=== PATIENT | female | born 1945 | race Caucasian/White ===

== ENCOUNTER 2019-01-25 15:16 | Inpatient (IN) ==
--- NOTE | 2019-01-25 15:36 | PROVIDER DOCUMENTATION ---
HPI-Musculoskeletal Pain/Inj - GENERAL Chief Complaint: Hip Injury Stated Complaint: FALL Time Seen by Provider: 01/25/19 15:31 Source: patient, EMS - HX OF PRESENT ILLNESS-MUSKULOSKELTAL Nature of Presenting Problem: [id number] presents to the ER via EMS with c/o left hip pain after falling from standing. She states that she tripped while picking Spring salad from her yard. She denies hitting her head or LOC. She states that her hip hurts to move and complains that it feels dislocated. No internal, external rotation was noted on arrival nor was limb shortening. She denies pain on palpation and has full ROM in her ankles. Quality of Pain: reports: dull Severity in ED: mild Onset/Duration: 1 hour ago Timing: still present Any recent injury?: Yes Locality of Occurance: Home Similar Symptoms Previously?: No Recently seen or treated by another doctor?: No - FALL INJURY Location of Pain/Injury: reports: lower extremity (left hip) Pain Radiation: reports: no radiation Symptoms prior to fall:: reports: none, other (trip) Loss of Consciousness: no loss of consciousness Injury Associated Symptoms: reports: denies symptoms - HIP/PELVIS PAIN/INJURY Hip Pain Location: reports: hip (L) Pain Radiation: reports: no radiation Context / Method of Injury: reports: fall Associated Symptoms: reports: denies symptoms - LOWER EXTREMITY PAIN/INJURY Lower Extremities Pain: hip: left Review of Systems - Adult - REVIEW OF SYSTEMS - ADULT Constitutional: reports: no symptoms reported, see HPI. denies: chills, fever, weight gain, weight loss Eyes: reports: no symptoms reported. denies: decreased vision, blurred vision, double vision, eye pain Ears, Nose, Mouth & Throat: reports: no symptoms reported. denies: ear discharge, tinnitus, epistaxis Cardiovascular: reports: no symptoms reported. denies: chest pain, heart murmur, irregular heart rate, palpitations, syncope Respiratory: reports: no symptoms reported. denies: chronic cough, cough, dyspnea on exertion, wheezing Gastrointestinal: reports: no symptoms reported. denies: abdominal pain, diarrhea, nausea, poor appetite, vomiting Genitourinary: reports: no symptoms reported. denies: dysuria, frequency, hematuria, urinary retention Musculoskeletal: reports: see HPI, bone pain (left hip). denies: back pain Integumentary: reports: no symptoms reported Neurological: reports: no symptoms reported. denies: dizziness/vertigo, headache/migraines, loss of balance Psychiatric: reports: no symptoms reported Endocrine: reports: no symptoms reported Hematologic/Lymphatic: reports: no symptoms reported Allergic/Immunologic: reports: no symptoms reported All Other Systems: Reviewed and Negative Past History - Adult - PAST MEDICAL HISTORY-ADULT Review of Records: reports: Old Records Reviewed, Nursing Assessment Review, Medications Reviewed, Social history reviewed & non-contributory. Major Childhood Illnesses: reports: denies history Cardiovascular: reports: denies history Respiratory: reports: denies history Gastrointestinal: reports: denies history Obstetrical/Gynecological: reports: denies history Genitourinary: reports: denies history Musculoskeletal: reports: denies history Neurological: reports: denies history Endocrine/Immune: reports: denies history Other Conditions: reports: denies history - PRIOR SURGERIES/PROCEDURES Surgical/Procedure History: reports: none - IMMUNIZATION STATUS Childhood Immunizations: See Nurse Assessment Flu Vaccine: See Nurse Assessment - FAMILY HISTORY Family History: reviewed, not pertinent - SOCIAL HISTORY Smoking: non-smoker Substance Use: none/never Alcohol Use Frequency: never Living Situation: family Physical Exam-Injury Related - Physical Exam-Injury Related Initial Vital Signs Reviewed: Yes General Appearance: appears well, alert, no apparent distress Eyes: PERRL/EOMI, pink conjunctivae Head, Ears, Nose, Mouth & Throat: normocephalic/atraumatic, moist mucous membranes, normal ENT inspection, TMs normal Neck: non-tender, full range of motion, supple Respiratory: chest non-tender, lungs clear, normal breath sounds Cardiovascular: normal peripheral pulses, regular rate, rhythm Peripheral Pulses: radial (R): 2+, radial (L): 2+, dorsalis-pedis (R): 2+, dorsalis-pedis (L): 2+ Abdominal Exam: normal bowel sounds, non tender, soft Female Genitalia/Pelvic Exam: deferred Rectal Exam: deferred Back Exam: normal inspection Extremity: normal capillary refill, tenderness (left hip), other (limited ROM left hip). negative: normal gait (unable to bear weight), deformity Integumentary: normal color, warm/dry, blanching Neurologic: grossly normal, abnormal gait Psych/Mental Status: normal mood/affect, oriented x 3 Progress - PLAN OF CARE/RESULTS Progress/Plan/Lab Results: Vital Signs - 8 hr 01/25/19 15:13 Temperature 98.6 F Pulse Rate 86 Respiratory Rate 16 Blood Pressure 165/82 O2 Sat by Pulse Oximetry 100 Orders Category Date Time Status XRAY HIP UNILATERAL LT [RAD] Stat Exams 01/25/19 15:15 Completed Patient to be transferred to [facility]. - XRAY 1 XRAY: Left (FINDINGS: There is fracture of the left femoral neck. There is associated mild impaction laterally. There is no dislocation identified. IMPRESSION: Fracture of left femoral neck.) XRAY Study: Hip Impression: Abnormal - CONSULTS/PCP/HOSPITALIST Notification #1 *Consult/PCP/Hospitalist*: TORO Alva Time Discussed: 16:32 Reason/Comments: hip fracture Consult Disposition: Admit #2 Consult: Dr daniel Time Discussed: 16:15 Reason/Comments: hip fracute Consult Disposition: other (Will see in AM, admit to hospitalist) Departure - Departure Date of Disposition Decision: 01/25/19 Time of Disposition Decision: 16:33 DIAGNOSIS: Fractured femoral neck Qualifiers: Encounter type: initial encounter Fracture type: closed Laterality: left Qualified Code(s): S72.002A - Fracture of unspecified part of neck of left femur, initial encounter for closed fracture Disposition: ADMITTED INPATIENT 09 Certified Medical Emergency: Emergent Condition: Critical Additional Freetext Instructions: Follow up with PCP as directed ED Follow Up Instructions: You have been treated by a care provider in the Emergency Department. These instructions are being provided to you so you can have an understanding of how to care for yourself upon discharge. Upon discharge from the Emergency Department, you are responsible for making arrangements for follow-up care by a physician of your choice. Take all prescribed medications as directed. Return to the Emergency Department immediately for any new or worsening symptoms. You may call the Physician Referral phone number at [phone] to obtain a list of Physicians who are taking new patients. - Critical Care Note This patient required my direct & personal management of CC.: No Attestation - Physician/ JENSEN Attestation Patient care was provided by Advanced Practice Provider:: Yes Advanced Practice Provider:: Gilbert Barker Advanced Practice Provider documentation review:: The Mid-level provider documentation, treatment plan and medical decision making was reviewed by the physician who agrees with all treatment and medical decision making by the MLP. The physician spent face to face time with patient:: No Advanced Practice Provider documentation review:: Supervising physician onsite and consulted in the evaluation and care of this patient. The physician did not have a face to face encounter with the patient.
--- NOTE | 2019-01-25 16:09 | Diag Imaging Result Doc PS360 ---
EXAM: XRAY HIP UNILATERAL LT - 01/25/2019 HISTORY: fall TECHNIQUE: Left hip two views COMPARISON: None. FINDINGS: There is fracture of the left femoral neck. There is associated mild impaction laterally. There is no dislocation identified. IMPRESSION: Fracture of left femoral neck. Electronically signed by Terry Solis 01/25/2019 4:07 PM
[2019-01-25 16:55] LABS: BASO# 0.02 X1000 (0.0-0.2); BASO% 0.2 % (0.0-0.8); EOS# 0.38 X1000 (0.0-0.7); EOS% 3.3 % (0.0-10.0); HEMATOCRIT 37.9 % (37.0-47.0); HEMOGLOBIN 13.1 g/dL (12.0-16.0); IMM GRAN# 0.03 X1000 (0.0-0.04); IMM GRAN% 0.3 % (0.0-0.5); LYMPH# 1.42 X1000 (1.2-3.4); LYMPH% 12.5 % (20.5-51.1); MCHC 34.6 g/dL (33-37); MCV 86.7 FL (81-99); MONO% 4.4 % (1.7-9.3); MPV 9.9 FL (7.4-10.4); NEUT# 9.02 X1000 (1.4-6.5); NEUT% 79.3 % (42.2-75.2); PLT 308 X1000 (130-400); RBC 4.37 XMIL (4.2-5.4); RDW 12.5 % (11.5-14.5); WBC 11.37 X1000 (4.8-10.8)
--- NOTE | 2019-01-25 17:11 | Diag Imaging Result Doc PS360 ---
EXAM: CHEST-PORTABLE INDICATION: admit TECHNIQUE: One view COMPARISON: None. FINDINGS: There is an incidental old healed rib fracture on the right. The lungs are grossly clear. There is no discrete pleural fluid collection or pneumothorax. The cardiomediastinal silhouette and central vasculature are grossly unremarkable. IMPRESSION: No evidence of acute pathology by plain radiograph. Electronically signed by Hunter De 01/25/2019 5:09 PM
[2019-01-25 17:38] LABS: BILIRUBIN URINE NEGATIVE (NEGATIVE); BLOOD URINE NEGATIVE (NEGATIVE); CLARITY CLEAR (CLEAR); COLOR YELLOW; KETONE URINE NEGATIVE (NEGATIVE); LEUKOCYTES URINE NEGATIVE (NEGATIVE); NITRITE URINE NEGATIVE (NEGATIVE); UROBILINOGEN URINE NORMAL
[2019-01-25 17:49] LABS: ALBUMIN 4.5 g/dL (3.5-5.0); CALCIUM 9.5 mg/dL (8.8-10.2); CREATININE 3.4 mg/dL (0.5-0.9); POTASSIUM 4.2 mmol/L (3.5-5.1); TOTAL BILIRUBIN 0.2 mg/dL (0.20-1.00); TOTAL PROTEIN 7.7 g/dL (6.3-8.3)
[2019-01-25 17:59] LABS: URINE BACTERIA NEGATIVE /HFP; URINE CAST NONE SEEN /LPF; URINE CRYSTAL NONE SEEN /HPF; URINE EPITHELIAL CELLS <10 /HPF (<10); URINE RBC <10 /HPF (<10); URINE WBC <10 /HPF (<10); URINE YEAST NONE SEEN /HPF
[2019-01-25 18:00] LABS: URINE SOURCE CATH
--- NOTE | 2019-01-25 18:26 | HISTORY AND PHYSICAL ---
PRIMARY CARE PROVIDER: Isabel Dunne M.D. in [place], [place] RIB TRIM SEPARATOR: Dr. Mclaughlin in [place], [place]. CHIEF COMPLAINT: Fall with left hip pain. HISTORY OF PRESENT ILLNESS: Ms. Bonilla is a 73-year-old female who carries a past medical history of hypertension, diabetes mellitus type 2, small DC, previous stage 5 kidney disease where she required hemodialysis for a short period of time, she was quickly taken off, recently was diagnosed with stage 4 kidney disease, hyperlipidemia, situational depression, GERD, vertigo, who reported this morning she was sitting out in her daughter's backyard. She got up to wrestle a [employer] plant and fell to the ground, had immediate left hip pain. Workup in the ED revealed a fracture of the left femoral neck. We are currently awaiting her laboratory data. We will place a [place]. Dr. Harry has already been consulted. We will transfer her [facility] to [facility]. PAST MEDICAL HISTORY: 1. Hypertension. 2. Diabetes mellitus type 2. 3. Small DC. 4. Stage 5 kidney disease where she required short-term dialysis, now diagnosed with stage 4 kidney disease. 5. Hyperlipidemia. 6. Depression situational. 7. Gastroesophageal reflux disease. 8. Vertigo. PAST SURGICAL HISTORY: Fibroid cyst removal from her breast. ALLERGIES: No known drug allergies. HOME MEDICATIONS: 1. Norvasc 10 mg p.o. daily. 2. Eliquis 2.5 mg p.o. b.i.d. 3. Calcitriol 0.25 mcg p.o. as directed. 4. Lasix 80 mg p.o. b.i.d. 5. SoloSTAR 20 units subcutaneous daily. 6. Iron 65 mg p.o. b.i.d. 7. Isosorbide dinitrate 20 mg p.o. b.i.d. 8. Prilosec 20 mg p.o. daily. 9. Simvastatin 40 mg p.o. daily. REVIEW OF SYSTEMS: Twelve-point review of systems complete and negative except for those mentioned in HPI. Patient denied any headache, fever, chills, chest pain, shortness of breath, palpitations, nausea, vomiting, diarrhea, any syncopal or presyncopal feelings before falling. PHYSICAL EXAMINATION: VITAL SIGNS: Temperature is 98.6 degrees, heart rate 82, respirations 18, blood pressure 165/82, O2 is 99% on room air. GENERAL: Ms. Bonilla is a pleasant 73-year-old female who is sitting on the stretcher in no acute distress. HEENT: Atraumatic, normocephalic. PERRL. NECK: Supple. Trachea midline. CARDIOVASCULAR: S1, S2 appreciated. No murmurs, gallops or rubs noted. RESPIRATORY: Lung sounds clear bilaterally. GASTROINTESTINAL: Soft, nontender, nondistended. Positive bowel sounds 4 quadrants. LOWER EXTREMITIES: There is some edema but nonpitting. Bilateral pedal pulses are palpable. No clubbing, no cyanosis. NEUROLOGIC: No focal deficits noted. DIAGNOSTIC DATA: Left hip x-ray shows a left femoral neck fracture. LABORATORY DATA: Currently pending. Urinalysis pending. IMAGING: Chest x-ray pending. ASSESSMENT AND PLAN: 1. Mechanical fall with a left femoral neck fracture. We will place her on strict bedrest, make her n.p.o. after midnight. Dr. Harry has already been consulted. We will provide her IV pain medication, place a Bardales catheter. 2. Chronic kidney disease, probable stage 4 to 5. Currently awaiting laboratory data. 3. Hypertension. Continue Norvasc. 4. Hyperlipidemia. Continue statin. 5. Diabetes mellitus type 2. We will continue with sliding scale patterned blood sugars. 6. Situational depression. We will continue home medication. 7. Gastroesophageal reflux disease. We will continue PPI. 8. Further recommendations to follow physician evaluation, laboratory and diagnostic data. Dictated by TORO Gross for Alonzo Tellez MD cc: MD Hunter Sal MD Dr. Carey Frix Dr. Chari
[2019-01-25] MEDS ORDERED: TYLENOL PO PRN (18:46)
--- NOTE | 2019-01-25 19:20 | HISTORY AND PHYSICAL ---
HISTORY OF PRESENT ILLNESS: Patient is a very pleasant 73-year-old female who is in town to visit her daughter. She apparently attempted to pull up a plant and fell, breaking her hip. Blood pressure is elevated slightly at 165/82. She currently states her pain is controlled. She has a known history of diabetes, hypertension, and stage IV renal disease. Currently, labs are still pending. We will evaluate those when they are available. We will transfer to [facility] for orthopedic evaluation. Further orders as needed. cc: Alonzo Tellez MD
[2019-01-25] MEDS: NS 1,000 ML IV SCH (20:51)
[2019-01-25] MEDS: MORPHINE IV PRN (20:52)
[2019-01-25] MEDS: ISORDIL PO SCH (20:52)
[2019-01-25] MEDS: ZOFRAN IV PRN (20:53)
[2019-01-25] MEDS: PATIENT'S OWN MED PO SCH (20:55)
[2019-01-25] MEDS: HUMALOG SUBQ SCH (22:54)
[2019-01-26] MEDS: MORPHINE IV PRN ×4 (02:58→20:18)
[2019-01-26] MEDS ORDERED: ATIVAN IV ONE (04:08)
[2019-01-26] MEDS: NS 1,000 ML IV SCH (05:05)
[2019-01-26 06:33] LABS: BASO# 0.01 X1000 (0.0-0.2); BASO% 0.1 % (0.0-0.8); EOS# 0.38 X1000 (0.0-0.7); EOS% 5.4 % (0.0-10.0); HEMATOCRIT 31.6 % (37.0-47.0); HEMOGLOBIN 10.7 g/dL (12.0-16.0); IMM GRAN# 0.02 X1000 (0.0-0.04); IMM GRAN% 0.3 % (0.0-0.5); LYMPH# 1.56 X1000 (1.2-3.4); MCH 29.6 PG (27-31); MCHC 33.9 g/dL (33-37); MCV 87.5 FL (81-99); MONO% 8.5 % (1.7-9.3); MPV 10.1 FL (7.4-10.4); NEUT# 4.52 X1000 (1.4-6.5); NEUT% 63.7 % (42.2-75.2); PLT 245 X1000 (130-400); RBC 3.61 XMIL (4.2-5.4); RDW 12.5 % (11.5-14.5); WBC 7.09 X1000 (4.8-10.8)
[2019-01-26 06:39] LABS: HEMOGLOBIN A1C 7.2 % (4.8-6.0)
[2019-01-26 07:17] LABS: TSH 3.73 uIUmL (0.27-4.20)
[2019-01-26 07:24] LABS: ALB/GLOB RATIO 1.5; ALBUMIN 3.8 g/dL (3.5-5.0); CALCIUM 8.8 mg/dL (8.8-10.2); CREATININE 3.4 mg/dL (0.5-0.9); POTASSIUM 3.1 mmol/L (3.5-5.1); TOTAL BILIRUBIN 0.33 mg/dL (0.20-1.00); TOTAL PROTEIN 6.3 g/dL (6.3-8.3)
--- NOTE | 2019-01-26 07:28 | EKG Report ---
Test Performed on : 01/26/2019 07:16:04 AM Test Reason : follow up Blood Pressure : / mmHG Vent. Rate : 081 BPM Atrial Rate : 081 BPM P-R Int : 186 ms QRS Dur : 078 ms QT Int : 398 ms P-R-T Axes : 052 005 052 degrees QTc Int : 462 ms Normal sinus rhythm. Normal ECG When compared with ECG of 25-JAN-2019 20:58, (Unconfirmed) No significant change was found Confirmed by Catalina GRAY, Clayton Silva ([id number]) on 01/26/2019 9:45:24 AM
[2019-01-26] MEDS: HUMALOG SUBQ SCH ×4 (07:35→22:08)
[2019-01-26] MEDS: PRILOSEC PO SCH (07:45)
[2019-01-26] MEDS: ZOFRAN IV PRN ×2 (08:16→14:13)
[2019-01-26] MEDS: PROZAC PO SCH (08:17)
[2019-01-26] MEDS: ISORDIL PO SCH ×2 (08:17→20:23)
[2019-01-26] MEDS: NORVASC PO SCH (08:18)
[2019-01-26] MEDS: PATIENT'S OWN MED PO SCH ×2 (08:19→20:23)
--- NOTE | 2019-01-26 08:27 | ORTHOPAEDICS CONSULTATION ---
DATE: 01/26/2019 CHIEF COMPLAINT: I broke my hip. HISTORY OF PRESENT ILLNESS: A 73-year-old female who fell sustaining a left femoral neck fracture. She is admitted by the hospitalist. She has a history of hypertension, diabetes, renal disease, hyperlipidemia, reflux and vertigo. She complains of left hip pain only. She denies any other complaints. She reports she just lost her balance and fell in the garden. PAST MEDICAL HISTORY: Significant for hypertension, diabetes, coronary disease in the past, renal disease, hyperlipidemia, depression, reflux, and vertigo. SURGICAL HISTORY: Status post a fibrous cyst removal in the breast in the past. ALLERGIES: None. HOME MEDICINES: Consist of Norvasc, Eliquis, calcitriol, Lasix, iron supplementation, isosorbide, Prilosec and simvastatin. REVIEW OF SYSTEMS: This is relatively noncontributory. SOCIAL HISTORY: Resides with her family in [place] in the [facility]. She was visiting another family member here. PHYSICAL EXAM: General: Reveals her alert and oriented. She is cooperative with exam. Extremities: Left lower extremity is equal in leg length. She is motor and sensory intact. She is nontender from the thigh down, but does have tenderness on gentle passive motion of the left hip. Pelvis is stable. Both upper extremities and the right lower extremity are atraumatic, and motor and sensory intact. She is nontender over the spine. X-RAYS: Reviewed and show a nondisplaced left femoral neck fracture. ASSESSMENT: Left femoral neck fracture, nondisplaced. PLAN: We will plan on surgical closed reduction and pinning of the hip fracture in the near future. This will likely be tomorrow given the OR schedule today is full. Risk of failure of the pinning. As well as need to convert to later total hip, or other surgical risks such as bleeding, infection, anesthesia, blood clots, damage to tendon, nerve or blood vessel, no guarantees were discussed, and she is willing to proceed. We will plan on proceeding with pinning of the left hip under anesthesia tomorrow around noon. cc: Hunter Harry MD
--- NOTE | 2019-01-26 08:28 | EKG Report ---
Test Performed on : 01/25/2019 8:58:58 PM Test Reason : med procedure Blood Pressure : / mmHG Vent. Rate : 093 BPM Atrial Rate : 093 BPM P-R Int : 178 ms QRS Dur : 078 ms QT Int : 364 ms P-R-T Axes : 066 018 080 degrees QTc Int : 452 ms Normal sinus rhythm. Normal ECG No previous ECGs available Confirmed by Catalina GRAY, Clayton Silva ([id number]) on 01/26/2019 9:45:12 AM
[2019-01-26] MEDS ORDERED: KLOR-CON PO ONE (15:02)
--- NOTE | 2019-01-26 16:10 | PROGRESS NOTE ---
DATE: 01/26/2019 SUBJECTIVE: Patient is lying comfortably in bed. At this moment, she is not complaining of pain. She has a left femoral neck fracture, and the plan is to go tomorrow for surgery. She is completely alert, oriented x3. Family members at the bedside. OBJECTIVE: Vital Signs: Temperature 98.7 degrees, pulse 82, respiratory rate 18, blood pressure 129/67, oxygen saturation 98 on room air. HEENT: Head normocephalic, no trauma. PERRLA. Neck: Supple. No JVD. No masses. Central trachea. Chest: Clear to auscultation. No wheezing. No rales. Abdomen: Soft, nontender, nondistended. No hepatosplenomegaly. Extremities: Left hip pain. The leg is rotated a little bit internally. Neurological: Alert and oriented x3. No focal deficits. DIAGNOSTIC STUDIES: WBC 7, hemoglobin 10.7, hematocrit 31.6, platelets 245,000. Sodium 139, potassium 3.1, chloride 100, bicarbonate 24, BUN 58, creatinine 3.4, glucose 85, calcium 8.8. ASSESSMENT AND PLAN: 1. Mechanical fall with a left neck fracture. The plan is to go for surgery tomorrow. Orthopedic Surgery evaluated this patient already. We will monitor. 2. Chronic kidney disease, stage 4. Apparently she was on dialysis before. Her last dialysis apparently was 3 months ago. Kidney function seems to be stable compared with yesterday. I do not have a previous BUN or creatinine. 3. Hypertension. Continue with same management. 4. Hypokalemia. I will replace the potassium. 5. Hyperlipidemia. Continue with statins. 6. Type 2 diabetes. Continue with sliding scale insulin and pattern of blood sugar. 7. Situational depression. Continue home medication. 8. Gastroesophageal reflux disease. Continue with PPI. cc: Zac Darden MD
[2019-01-26] MEDS: ZOCOR PO SCH (20:23)
[2019-01-26] MEDS: LASIX PO SCH (20:23)
[2019-01-27] MEDS: MORPHINE IV PRN (02:16)
[2019-01-27] MEDS: PRILOSEC PO SCH (06:16)
[2019-01-27 06:54] LABS: BASO# 0.02 X1000 (0.0-0.2); BASO% 0.2 % (0.0-0.8); EOS# 0.62 X1000 (0.0-0.7); EOS% 6.8 % (0.0-10.0); HEMATOCRIT 33.2 % (37.0-47.0); HEMOGLOBIN 10.9 g/dL (12.0-16.0); LYMPH% 12.1 % (20.5-51.1); MCH 29.7 PG (27-31); MCHC 32.8 g/dL (33-37); MCV 90.5 FL (81-99); MONO# 0.49 X1000 (0.11-0.59); MONO% 5.4 % (1.7-9.3); MPV 10.2 FL (7.4-10.4); NEUT# 6.86 X1000 (1.4-6.5); NEUT% 75.5 % (42.2-75.2); PLT 254 X1000 (130-400); RBC 3.67 XMIL (4.2-5.4); RDW 12.7 % (11.5-14.5); WBC 9.09 X1000 (4.8-10.8)
[2019-01-27] MEDS: HUMALOG SUBQ SCH ×4 (07:04→22:14)
[2019-01-27 07:14] LABS: CALCIUM 9.4 mg/dL (8.8-10.2); CREATININE 3.7 mg/dL (0.5-0.9)
--- NOTE | 2019-01-27 07:29 | ORTHOPAEDICS PROGRESS NOTE ---
DATE: 01/27/2019 SUBJECTIVE DATA: Ms. Bonilla is seen preop for her left hip pinning. She reports she is still NPO and has not had anything to eat or drink but is requesting some ice chips at this time. OBJECTIVE DATA: The patient is sitting comfortably in the bed. Family at the bedside. There is some swelling noted to the left hip. There is good sensation in the left lower extremity. There are good pedal pulses. There is some slight shortening to the left leg. There is no internal or external rotation noted. ASSESSMENT: Left femoral neck fracture. PLAN: We will plan to do a pinning of her left hip today around 11 a.m. All questions were answered for the patient and her family at bedside. They are willing to proceed. Dictated by TORO Slaughter for Hunter Harry MD cc: TORO Slaughter MD
[2019-01-27] MEDS ORDERED: KEFZOL 1 GM/D5W 1 GM/50 ML IVPB ONE (10:36)
[2019-01-27] MEDS ORDERED: ROBINUL ONE (10:37)
[2019-01-27] MEDS ORDERED: XYLOCAINE-MPF 2% ONE (10:37)
[2019-01-27] MEDS ORDERED: FENTANYL ONE (10:38)
[2019-01-27] MEDS ORDERED: SODIUM CHLORIDE 0.9% 20 ML ONE (10:38)
[2019-01-27] MEDS ORDERED: DIPRIVAN 1% ONE (10:38)
[2019-01-27] MEDS ORDERED: NEO-SYNEPHRINE ONE (10:38)
[2019-01-27] MEDS ORDERED: ZOFRAN ONE (11:21)
[2019-01-27] MEDS ORDERED: MILK OF MAGNESIA PO PRN (13:03)
[2019-01-27] MEDS ORDERED: ZOFRAN IV PRN (13:03)
[2019-01-27] MEDS ORDERED: MORPHINE IV PRN (13:03)
[2019-01-27] MEDS: 1/2 NS 1,000 ML IV SCH (13:05)
[2019-01-27] MEDS ORDERED: HALDOL IV PRN (13:15)
--- NOTE | 2019-01-27 13:38 | OPERATIVE NOTE ---
PROCEDURE DATE: 01/27/2019 PREOPERATIVE DIAGNOSIS: Nondisplaced left femoral neck fracture. POSTOPERATIVE DIAGNOSIS: Nondisplaced left femoral neck fracture. PROCEDURE: Closed reduction and percutaneous pinning, left hip. SURGEON: Claudia Harry MD GATHERING MACHINE FEEDER: TORO Slaughter. Mr. Reinoso was necessary for proper retraction and manipulation of the leg. ANESTHESIA: General. COMPLICATION: None. PROCEDURE IN DETAIL: This 73-year-old female with a minimally displaced left femoral neck fracture presents for surgical fixation. Risks, benefits, and no guarantees were discussed, and she is willing to proceed. She was taken to the operating room and satisfactory anesthesia obtained. She was transferred to the [place] table and the left hip prepped and draped in the usual sterile fashion. A time-out was taken to confirm operative site, procedure, and patient. Under fluoroscopic guidance, a 1-inch incision was made opposite the lesser trochanter. Dissection was carried down to the lateral proximal femur. Under fluoroscopic multiplanar guidance, 3 guide pins were placed in a triangular fashion into the femoral head, through the lateral cortex, and up the femoral neck. Care was taken to avoid any articular penetration. These were measured and three 85 length partially threaded 7.3 titanium cancellous screws inserted over the guidewires, each with secure fixation and solid screw purchase into the bone. The guidewires were removed and the C-arm used to verify accurate fracture reduction and hardware placement. The wound was irrigated and closed in layers with 2-0 Vicryl and skin darryl. Sterile dressings completed the closure and the patient was recovered from anesthesia and transferred to the recovery room in stable condition. No intraoperative complications were noted. Instrument count and sponge count were correct at the time of closure. cc: Hunter Harry MD
[2019-01-27] MEDS: PROZAC PO SCH (15:12)
[2019-01-27] MEDS: ISORDIL PO SCH ×2 (15:12→22:13)
[2019-01-27] MEDS: TYLENOL PO SCH ×2 (15:15→22:13)
[2019-01-27] MEDS: NORVASC PO SCH (15:17)
--- NOTE | 2019-01-27 17:43 | PROGRESS NOTE ---
DATE: 01/27/2019 SUBJECTIVE: This patient just came back from surgery. She seems to be relaxed. She is not complaining of pain at this moment, or respiratory distress. No chest pain. Family members at the bedside. This patient comes from [place]. I will ask the secondary social studies teacher to evaluate this patient to see if we can get some rehab center or home health close to her house if possible. OBJECTIVE: Vital Signs: Temperature 98.9, pulse 104, respiratory rate 16, blood pressure 140/66, oxygen saturation 97 on room air. HEENT: Head normocephalic. No trauma. PERRLA. Neck: Supple. No JVD, no masses. Central trachea. Chest: Clear to auscultation. No wheezing, no rales. Abdomen: Soft, nontender, nondistended. No hepatosplenomegaly. Extremities: The left hip has a dressing with no blood or any secretion, mild edema. Neurologic: No vascular or neurological problems at this moment. The patient is sleepy but arousable. She is answering some of my questions, but she is pretty sleepy. LABORATORY DATA: WBCs 9.0, hemoglobin 10.9, hematocrit 33.2, platelets 254. Sodium 140, potassium 4, chloride 101, bicarbonate 23, BUN 57, creatinine 3.7, glucose 151, calcium 9.4. ASSESSMENT/PLAN: 1. Mechanical fall with a left neck fracture, status post repair. The patient just came back from surgery. She seems to be doing well. 2. Chronic kidney disease stage 4. Apparently she was on dialysis before. This has been corroborated by family members at the bedside. Kidney function seems to be at baseline. Will continue to monitor. Will continue also with some IV fluids since she is not eating right now. 3. Hypertension, responding to current management. 4. Hypokalemia, resolved. 5. Hyperlipidemia. Continue with statins. 6. Type 2 diabetes. Continue sliding-scale insulin and pattern blood sugars. 7. Situational depression. Continue with home medications. 8. Gastroesophageal reflux disease. Continue with proton pump inhibitors. cc: Zac Darden MD
[2019-01-27] MEDS: KEFZOL 1 GM/D5W 1 GM/50 ML IVPB IV SCH (18:14)
[2019-01-27] MEDS: OXY IR PO PRN ×2 (18:18→22:11)
[2019-01-27] MEDS: COLACE PO SCH (22:13)
[2019-01-27] MEDS: PATIENT'S OWN MED PO SCH (22:15)
[2019-01-27] MEDS: ZOCOR PO SCH (22:16)
[2019-01-28] MEDS: OXY IR PO PRN ×3 (03:16→18:12)
[2019-01-28] MEDS: TOUJEO SOLOSTAR SUBQ SCH (03:56)
[2019-01-28] MEDS: KEFZOL 1 GM/D5W 1 GM/50 ML IVPB IV SCH ×2 (04:04→11:24)
[2019-01-28] MEDS: TYLENOL PO SCH ×2 (05:37→16:14)
[2019-01-28] MEDS ORDERED: XARELTO PO SCH (06:00)
[2019-01-28 06:27] LABS: HEMATOCRIT 28.9 % (37.0-47.0); HEMOGLOBIN 9.4 g/dL (12.0-16.0)
[2019-01-28] MEDS: PRILOSEC PO SCH (06:32)
[2019-01-28] MEDS: HUMALOG SUBQ SCH ×3 (06:50→16:16)
[2019-01-28 07:00] LABS: CALCIUM 8.1 mg/dL (8.8-10.2); CREATININE 3.8 mg/dL (0.5-0.9)
[2019-01-28] MEDS: ROCALTROL PO SCH (09:02)
[2019-01-28] MEDS: PROZAC PO SCH (09:03)
[2019-01-28] MEDS: FERROUS SULFATE PO SCH (09:03)
[2019-01-28] MEDS: ISORDIL PO SCH (09:03)
[2019-01-28] MEDS: PERIDEX MT SCH (09:03)
[2019-01-28] MEDS: NORVASC PO SCH (09:03)
[2019-01-28] MEDS: 1/2 NS 1,000 ML IV SCH (09:03)
[2019-01-28] MEDS: PATIENT'S OWN MED PO SCH (09:05)
[2019-01-28] MEDS: LASIX PO SCH (09:05)
--- NOTE | 2019-01-28 12:01 | ORTHOPAEDICS PROGRESS NOTE ---
DATE: 01/28/2019 SUBJECTIVE: Ms. Bonilla is seen on postop day 1 of her left hip pinning. She reports she is doing well at this time. She reports her pain is 2 out of 10. OBJECTIVE: The patient is lying comfortably in the bed, talking with family at bedside. There is some mild tenderness of the left hip. The bandages are clean and dry. Vital signs are stable. There is good sensation left lower extremity. The patient can bend the knee without problems. There are good pedal pulses. There is no internal or external rotation noted. ASSESSMENT: Left femoral neck fracture. PLAN: We will plan to follow Ms. Bonilla in about 10 days to get her darryl out. They reported that they do live in [place] and they will need to find an orthopedic clinic or urgent care up there to remove her darryl and get her set up for physical therapy. All questions were answered with her family. We will check back on them later as needed. Dictated by TORO Slaughter for Hunter Harry MD cc: TORO Slaughter MD
--- NOTE | 2019-01-28 14:54 | PROGRESS NOTE ---
DATE: 01/28/2019 SUBJECTIVE: This patient is postoperative day #1 of left femoral neck fracture status post pinning, she is doing fine. I will advance her diet and I will stop the fluids. We are working on finding placement in a rehab center for this patient. OBJECTIVE: Vital Signs: Temperature 98.7 degrees, pulse 93, respiratory rate 12, blood pressure 149/123, oxygen saturation 93 on 3 L of nasal cannula. HEENT: Head normocephalic. No trauma. PERRLA. Neck: Supple. No JVD. No masses. Central trachea. Chest: Clear to auscultation. No wheezing. No rales. Abdomen: Soft, nontender, nondistended. No hepatosplenomegaly. Extremities: The left hip has a dressing with no blood or any secretion, mild edema. Neurological: The patient is alert and oriented x3. No vascular or neurological issues at this moment. LABORATORY DATA: WBC 9.4, hemoglobin 28.9. Sodium 134, potassium 4, chloride 100, bicarbonate 21, BUN 57, creatinine 3.8, glucose 141, calcium 147. Hemoglobin A1c 7.2, calcium 8.1. ASSESSMENT AND PLAN: 1. Mechanical fall with left neck fracture status post repair, postoperative day #1. She seems to be doing well. She is status post pinning of that femoral neck fracture. 2. Chronic kidney disease stage 4. Apparently she has she has been on dialysis before. This has been corroborated by the family at the bedside. Kidney function seems to be stable. We will continue to monitor. I will stop the IV fluids and I will continue with her regular medications, will advance the diet. 3. Hypertension, responded to current treatment. 4. Hypokalemia, resolved. 5. Hyperlipidemia. Continue with statins. 6. Type 2 diabetes. Continue sliding scale insulin and pattern blood sugar. 7. Situational depression. Continue home medications. 8. Gastroesophageal reflux disease. Continue proton pump inhibitors. cc: Zac Darden MD
[2019-01-29] MEDS: PERIDEX MT SCH ×3 (00:05→21:45)
[2019-01-29] MEDS: LASIX PO SCH ×4 (00:06→21:45)
[2019-01-29] MEDS: TYLENOL PO SCH ×5 (00:06→21:48)
[2019-01-29] MEDS: ZOCOR PO SCH ×2 (00:06→21:45)
[2019-01-29] MEDS: COLACE PO SCH ×2 (00:06→21:45)
[2019-01-29] MEDS: TOUJEO SOLOSTAR SUBQ SCH ×2 (00:07→21:46)
[2019-01-29] MEDS: HUMALOG SUBQ SCH ×5 (00:08→21:47)
[2019-01-29] MEDS: PATIENT'S OWN MED PO SCH ×5 (00:08→21:47)
[2019-01-29] MEDS: ISORDIL PO SCH ×3 (00:09→21:44)
[2019-01-29 07:14] LABS: HEMATOCRIT 28.7 % (37.0-47.0); HEMOGLOBIN 9.5 g/dL (12.0-16.0)
[2019-01-29 08:03] LABS: CALCIUM 8.4 mg/dL (8.8-10.2); CREATININE 3.8 mg/dL (0.5-0.9); POTASSIUM 3.5 mmol/L (3.5-5.1)
[2019-01-29] MEDS: PRILOSEC PO SCH (08:07)
[2019-01-29] MEDS: OXY IR PO PRN ×3 (08:09→18:12)
--- NOTE | 2019-01-29 08:16 | ORTHOPAEDICS PROGRESS NOTE ---
DATE: 01/29/2019 SUBJECTIVE: The patient is a pleasant 73-year-old female who is 2 days status post closed reduction and percutaneous pinning of the left hip per Dr. Harry. She is currently resting comfortably. OBJECTIVE: The patient wound looks good. There is no signs or symptoms of infection. Calf is soft. She is grossly neurovascularly distally. LABORATORY DATA: Her hemoglobin is 9.5, hematocrit is 28.7. IMPRESSION: Postoperative day #2 status post closed reduction and pinning of the left hip. PLAN: At this point the patient will continue mobilizing with physical therapy. [employer] have been consulted for discharge planning. We will change her dressing today. cc: Daniel Stapleton MD
[2019-01-29] MEDS: ROCALTROL PO SCH (09:26)
[2019-01-29] MEDS: ELIQUIS PO SCH ×2 (09:27→21:44)
[2019-01-29] MEDS: FERROUS SULFATE PO SCH (09:27)
[2019-01-29] MEDS: NORVASC PO SCH (09:27)
[2019-01-29] MEDS: PROZAC PO SCH (09:27)
--- NOTE | 2019-01-29 17:15 | PROGRESS NOTE ---
DATE: 01/29/2019 SUBJECTIVE: This patient is postoperative day #2 of left femoral neck fracture status post pinning, she is doing fine. We will continue with same management. The plan is to send this patient to rehab next week. OBJECTIVE: Vital Signs: Temperature 98.3, pulse 90, respiratory rate 17, blood pressure 137/65, oxygen saturation 97% on 3 L of nasal cannula. HEENT: Head normocephalic. No trauma, PERRLA. Neck: Supple. No JVD. No masses. Central trachea. Chest: Clear to auscultation. No wheezing. No rales. Abdomen: Soft, nontender, nondistended. No hepatosplenomegaly. Extremities: Left hip has a dressing with no blood or any kind of secretion. Mild edema. Mild pain to palpation. Neurological: Alert and oriented x3. No focal deficits. LABORATORY: WBC 9.5, hemoglobin 28.7. Sodium 136, potassium 3.5, chloride 100, bicarbonate 22, BUN 54, creatinine 3.8, glucose 150, calcium 8.4. ASSESSMENT AND PLAN: 1. Mechanical fall with left neck fracture, status post repair, postoperative day #1. She seems to be doing well. We will continue with same management. The plan is to send this patient to a rehab center at the beginning of the next week. 2. Chronic kidney disease stage 4, apparently she has been on dialysis before. The family corroborated this information. Kidney function seems to be stable. We will continue to monitor. I have stopped the IV fluid and I put her back on her regular medications. 3. Hypertension, continue with same management. 4. Hypokalemia, resolved. 5. Hyperlipidemia. Continue with statins. 6. Type 2 diabetes. Continue with sliding scale insulin and pattern of blood sugar. 7. Situational depression, continue home medications. 8. Gastroesophageal reflux disease. Continue proton pump inhibitors. cc: Zac Darden MD
[2019-01-30] MEDS: TYLENOL PO SCH ×3 (05:16→22:13)
[2019-01-30 06:23] LABS: HEMATOCRIT 27.5 % (37.0-47.0); HEMOGLOBIN 9.2 g/dL (12.0-16.0)
[2019-01-30 06:47] LABS: CALCIUM 8.8 mg/dL (8.8-10.2); CREATININE 3.7 mg/dL (0.5-0.9); POTASSIUM 3.8 mmol/L (3.5-5.1)
[2019-01-30] MEDS: HUMALOG SUBQ SCH ×4 (07:26→22:46)
[2019-01-30] MEDS: PRILOSEC PO SCH (07:26)
--- NOTE | 2019-01-30 09:56 | ORTHOPAEDICS PROGRESS NOTE ---
DATE: 01/30/2019 SUBJECTIVE: The patient is a 73-year-old female who is 3 days status post closed reduction percutaneous pinning left hip per Dr. Harry. The patient is currently sitting in a chair and resting comfortably. She has no complaints today. OBJECTIVE: On physical exam, patient's dressing is intact. Calf is soft. Active dorsiflexion and plantar flexion. LABORATORY DATA: Her hemoglobin is 9.2 and hematocrit is 27.5. IMPRESSION: Postoperative day #3 status post closed reduction and pinning, left hip. PLAN: At this point, we will continue with physical therapy and anticipate discharge to rehab tomorrow. cc: Daniel Stapleton MD
[2019-01-30] MEDS: PERIDEX MT SCH ×2 (10:12→22:47)
[2019-01-30] MEDS: ISORDIL PO SCH ×2 (10:13→22:46)
[2019-01-30] MEDS: LASIX PO SCH ×2 (10:13→22:47)
[2019-01-30] MEDS: ROCALTROL PO SCH (10:13)
[2019-01-30] MEDS: FERROUS SULFATE PO SCH (10:13)
[2019-01-30] MEDS: ELIQUIS PO SCH ×2 (10:13→22:47)
[2019-01-30] MEDS: NORVASC PO SCH (10:13)
[2019-01-30] MEDS: PROZAC PO SCH (10:13)
[2019-01-30] MEDS: PATIENT'S OWN MED PO SCH ×2 (10:19→22:52)
--- NOTE | 2019-01-30 12:28 | PROGRESS NOTE ---
DATE: 01/30/2019 SUBJECTIVE: Postoperative day #3 of the left femoral neck fracture status post pinning. No acute events overnight. OBJECTIVE: Vital Signs: Temperature 98.6 degrees, pulse 89, respiratory rate 20, blood pressure 135/67, oxygen saturation 92 on 3 L of nasal cannula. HEENT: Head normocephalic. No trauma. PERRLA. Neck: Supple. No JVD. No masses. Central trachea. Chest: Clear to auscultation. No wheezing. No rales. Abdomen: Soft, nontender, nondistended. No hepatosplenomegaly. Extremities: Left hip with a dressing with no blood or any kind of secretion. Mild edema. Mild pain to palpation. Neurological Examination: The patient is alert and oriented x3. No focal deficits. Laboratory: Hemoglobin 9.2, hematocrit 27.5. Sodium 137, chloride 101, bicarbonate 23, BUN 56, creatinine 3.7, glucose 136, calcium 8.8. ASSESSMENT AND PLAN: 1. Mechanical fall with left neck fracture, status post repair, postoperative day #2. He seems to be doing well. We will continue with the same management. The plan is to send this patient to a rehab center at the beginning of the week. 2. Chronic kidney disease stage 4, stable. 3. Hypertension. Continue with the same management. 4. Hypokalemia, resolved. 5. Hyperlipidemia. Continue with statins. 6. Type 2 diabetes. Continue sliding scale insulin and pattern of blood sugar. 7. Situational depression. Aware. Continue home medications. 8. Gastroesophageal reflux disease. Continue proton pump inhibitors. cc: Zac Darden MD [facility]
[2019-01-30] MEDS: OXY IR PO PRN (22:12)
[2019-01-30] MEDS: TOUJEO SOLOSTAR SUBQ SCH (22:45)
[2019-01-30] MEDS: ZOCOR PO SCH (22:46)
[2019-01-30] MEDS: COLACE PO SCH (22:46)
[2019-01-31] MEDS: TYLENOL PO SCH (04:22)
[2019-01-31] MEDS: HUMALOG SUBQ SCH ×2 (06:53→11:11)
[2019-01-31] MEDS: PRILOSEC PO SCH (06:57)
[2019-01-31] MEDS: FERROUS SULFATE PO SCH (08:20)
[2019-01-31] MEDS: LASIX PO SCH (09:31)
[2019-01-31] MEDS: ELIQUIS PO SCH (09:31)
[2019-01-31] MEDS: NORVASC PO SCH (09:31)
[2019-01-31] MEDS: ISORDIL PO SCH (09:31)
[2019-01-31] MEDS: ROCALTROL PO SCH (09:31)
[2019-01-31] MEDS: PROZAC PO SCH (09:31)
[2019-01-31] MEDS: PERIDEX MT SCH (09:32)
[2019-01-31] MEDS: OXY IR PO PRN (11:12)
[2019-01-31 11:13] VITALS: BP 136/68
--- NOTE | 2019-01-31 13:43 | DISCHARGE SUMMARY ---
ADMISSION DATE: 01/25/2019 [facility]: [facility] PHYS[facility]IAN: Isabel Dunne MD ([place], [place]) [employer] PROGRAMS DIRECTOR: Dr. Lopez in [place], [place] ADMISSION DIAGNOSES: 1. Mechanical fall with a left femoral neck fracture. 2. Chronic kidney disease probable stage 4 to 5. 3. Hypertension. 4. Hyperlipidemia. 5. Diabetes type 2. 6. Situational depression. 7. Gastroesophageal reflux disease. DISCHARGE DIAGNOSES: 1. Mechanical fall with left neck fracture, status post repair. 2. Chronic kidney disease stage 3 to 4. 3. Hypertension. 4. Hyperlipidemia. 5. Diabetes type 2. 6. Situational depression. 7. Gastroesophageal reflux disease. SUMMARY OF FINDINGS: This is a 73-year-old female who presented to the emergency room after she reported sitting in her daughter's back yard, got up to wrestle a poke salad plant and fell to the ground and had immediate left hip pain. Workup in the ED revealed a fracture of the left femoral neck. Consulted Orthopedics. Placed an indwelling Bardales catheter. She had her surgery per Orthopedics on 01/27/2019 and tolerated well with a closed reduction and percutaneous pinning of the left hip. It is now felt she can safely be discharged home. Since she is from [place], she will be discharged to [facility] to follow up with Dr. Vogel, Orthopedics in 10 days, or her primary care physician and to followup with her kidney doctor and call for an appointment. DISCHARGE MEDICATIONS: Tylenol 650 mg p.o. q.6 hours p.r.n., Norvasc 10 mg p.o. daily, Colace 200 mg p.o. nightly, ferrous sulfate 325 mg p.o. with breakfast, fluoxetine 40 mg p.o. daily, furosemide 80 mg p.o. b.i.d., Toujeo 20 units subcutaneous daily, iron 65 mg p.o. b.i.d., isosorbide 20 mg p.o. b.i.d., milk of magnesia 30 mL p.o. daily p.r.n., omeprazole 20 mg p.o. daily, Oxy-IR 5 mg p.o. q.3 hours p.r.n., simvastatin 40 mg p.o. daily, Eliquis 2.5 mg p.o. b.i.d., Calcitrol 0.25 mcg p.o. as directed. Total time 35 minutes for discharge. Dictated by TORO Berman for Zac Darden MD cc: TORO Berman MD
== END 2019-01-31 13:16 | DRG 481 ==
LOC: P.ED 15:16 → SUATTDRO 16:56 → 4N 16:56
PROVIDERS: ATTEND Internal Medicine
CPT/HCPCS: 51702; 71010; 71045; 73502; 76000; 80048; 80053; 81001; 82607; 82746; 82948; 83036; 83735; 83880; 84443; 85014; 85018; 85025; 93005; 93010; 94761; 94799; 97110; 97162; 97530; 99285; A9270; J0690; J1815; J2060; J2270; J2370; J2405; J3010; J7030; XXXXX